=== PATIENT | male | born 1990 | race American Indian/Alaskan Native ===

== ENCOUNTER 2020-09-12 08:30 | Emergency (ER) | payer SELFPAY ==
[2020-09-12 08:39] VITALS: BP 131/92
[2020-09-12] MEDS ORDERED: dexAMETHasone 20 MG/5 ML VIAL IV ONE (09:27)
[2020-09-12] MEDS ORDERED: ALBUTEROL 2.5 MG/3 ML NEBU IH ONE (09:27)
[2020-09-12] MEDS ORDERED: IPRATROPIUM 0.02% NEBU 2.5 ML IH ONE (09:27)
--- NOTE | 2020-09-12 09:27 | XRay Report ---
CHEST 2 VIEWS INDICATION / CLINICAL INFORMATION: SOB, asthma hx. COMPARISON: None available. FINDINGS: SUPPORT DEVICES: None. HEART / MEDIASTINUM: No significant abnormality. LUNGS / PLEURA: No significant pulmonary or pleural abnormality. No pneumothorax. ADDITIONAL FINDINGS: No significant additional findings. IMPRESSION: 1. No acute findings. Signer Name: Jl Paris MD Signed: 09/12/2020 9:23 AM Workstation Name: [id number]
--- NOTE | 2020-09-12 09:28 | Emergency Department Report ---
ED General Adult HPI - General Chief complaint: Adult Asthma Stated complaint: DIFFICULTY BREATHING Time Seen by Provider: 09/12/20 09:25 Source: patient Mode of arrival: Ambulatory Limitations: No Limitations - History of Present Illness Initial comments: 29-year-old -[place] male patient presents with complaints of shortness of breath and wheezing times yesterday. He states history of asthma and that this feels like his asthma. He states he called the ambulance around 3 AM and they gave him a short nebulizer treatment and his symptoms improved. Patient states the tightness and wheezing began to worsen a few hours later. He states he has been out of his albuterol inhaler for 2 months. He denies any nausea/vomiting/diarrhea, abdominal pain, cough/hemoptysis, or fever/chills/sweats. He also denies any recent known sick contact - Related Data Previous Rx's Medication Instructions Recorded Last Taken Type Albuterol Mdi (or & Nicu Only) 2 puff IH Q4H PRN #8.5 gram 09/12/20 Unknown Rx [ProAir HFA Inhaler] Prednisone [predniSONE 10 mg 10 mg PO .TAPER #1 tab.ds.pk 09/12/20 Unknown Rx (6-Day Pack, 21 Tabs)] Allergies Allergy/AdvReac Type Severity Reaction Status Date / Time No Known Allergies Allergy Unverified 09/12/20 08:38 ED Review of Systems ROS: Stated complaint: DIFFICULTY BREATHING Other details as noted in HPI ED Past Medical Hx - Past Medical History Previous Medical History?: Yes Hx Asthma: Yes - Surgical History Past Surgical History?: No - Social History Smoking Status: Never Smoker Substance Use Type: None - Medications Home Medications: Home Medications Medication Instructions Recorded Confirmed Last Taken Type Albuterol Mdi (or & Nicu Only) 2 puff IH Q4H PRN #8.5 gram 09/12/20 Unknown Rx [ProAir HFA Inhaler] Prednisone [predniSONE 10 mg 10 mg PO .TAPER #1 tab.ds.pk 09/12/20 Unknown Rx (6-Day Pack, 21 Tabs)] ED Physical Exam - General Limitations: No Limitations ED Course Vital Signs 09/12/20 09/12/20 08:38 09:33 Temperature 98.4 F Pulse Rate 79 Respiratory 16 Rate Blood Pressure 131/92 O2 Sat by Pulse 98 Oximetry ED Medical Decision Making - Radiology Data Radiology results: report reviewed CHEST 2 VIEWS INDICATION / CLINICAL INFORMATION: SOB, asthma hx. COMPARISON: None available. FINDINGS: SUPPORT DEVICES: None. HEART / MEDIASTINUM: No significant abnormality. LUNGS / PLEURA: No significant pulmonary or pleural abnormality. No pneumothorax. ADDITIONAL FINDINGS: No significant additional findings. IMPRESSION: 1. No acute findings. - Medical Decision Making 29-year-old -[place] male patient presents with complaints of shortness of breath and wheezing times yesterday. He states history of asthma and that this feels like his asthma. He states he called the ambulance around 3 AM and they gave him a short nebulizer treatment and his symptoms improved. Patient states the tightness and wheezing began to worsen a few hours later. He states he has been out of his albuterol inhaler for 2 months. He denies any nausea/vomiting/diarrhea, abdominal pain, cough/hemoptysis, or fever/chills/sweats. He also denies any recent known sick contact Patient given continuous DuoNeb and Decadron here in ED. Resolved. He is well- appearing his vitals are normal. Patient is stable for discharge home. Recommend follow-up with primary care in 3 to 5 days. Strict return precautions were discussed in detail with patient who verbalizes understanding. Critical care attestation.: If time is entered above; I have spent that time in minutes in the direct care of this critically ill patient, excluding procedure time. ED Disposition Clinical Impression: Asthma exacerbation Qualifiers: Asthma severity: mild Asthma persistence: intermittent Qualified Code(s): J45.21 - Mild intermittent asthma with (acute) exacerbation Disposition: TO HOME OR SELFCARE Is pt being admited?: No Condition: Stable Instructions: Asthma, Adult Prescriptions: Prednisone [predniSONE 10 mg (6-Day Pack, 21 Tabs)] 10 mg PO .TAPER #1 tab.ds.pk Albuterol Mdi (or & Nicu Only) [ProAir HFA Inhaler] 2 puff IH Q4H PRN #8.5 gram PRN Reason: Shortness Of Breath Referrals: [facility] [Provider Group] - 3-5 Days
== END 2020-09-12 11:21 | disposition home or self-care (01) ==
LOC: ED 08:30
DX: J45.901 Unspecified asthma with (acute) exacerbation (principal); Z79.899 Other long term (current) drug therapy
CPT/HCPCS: 71046; 94640; 96374; 99283; J1100; 94644